=== PATIENT | male | born 1935 | race Caucasian/White ===

== ENCOUNTER 2017-01-04 11:01 | Inpatient (IN) | payer MEDICARE, BC ==
[~2017-01-04] VITALS: Ht 177.8 cm; Wt 77.1 kg
--- NOTE | ~2017-01-04 | ECH ---
Transthoracic Echocardiography Report (TTE) Demographics Patient Name CARMEN PEREZ Date of Study 01/07/2017 Patient Number [id number] Visit Number [id number] Date of 1935 Room Number 414 Accession Number [id number] Gender Male Age 81 year(s) Referring Vu Desouza MD Edger Operator Deedee Purcell Physician RDCS Physician Interpreting Wilder AUGUSTINE Refractory Grinder Operator Physician Chao Supervising Ordering Physician Vu Desouza MD, MD/P Nurse Stress Customer Sales Advisor Conclusions Contractility Score Summary Normal Left Ventricular contractility was noted. Summary Technically very difficult exam with limited visualization of the valves. The estimated left ventricular ejection fraction is 60%. Diastolic assessment reveals Grade I diastolic dysfunction. No significant regurgitant valvular abnormalities. No definitive evidence of endocarditis from TTE. Recommendation The patient will be given the results of this study by the physician who ordered the exam. Procedure Type of Study TTE procedure:Echo Complete SF. Procedure Date Date: 01/07/2017 Start: 02:06 PM Technical Quality: Limited visualization due to poor acoustical window. Indications:Fever of unknown origin and Atrial fibrillation. Appropriate Use Criteria: 9 Height: 70 inches Weight: 176 pounds BSA: 1.98 m Rhythm: Atrial fibrillation HR: 112 bpm BP: 172/65 mmHg M-Mode/2D Measurements LV Diastolic Dimension: 5.89 cm LV Systolic Dimension: 3.55 cm LV Septum Diastolic: 0.87 cm LV PW Diastolic: 0.84 cm AO Root Dimension: 3.6 cm Cardiac Output: 5.04 l/min LA Dimension: 3.48 cm Cardiac Index: 2.55 l/min*m RV Diastolic Dimension: 3 cm LA volume index: 30 ml/m LVOT: 2.02 cm LVOT VTI: 14.06 cm RV Base: 3.7 cm LV Stroke volume: 45.04 ml RV Mid: 2 cm LV Stroke volume index: 22.75 ml/m TAPSE: 2.9 cm TDI-S': 15 cm/s Doppler Measurements AV Peak Velocity: 1.4 m/s MV Peak E-Wave: 0.61 m/s AV Peak Gradient: 7.84 mmHg MV Peak A-Wave: 0.72 m/s AV Mean Gradient: 4.18 mmHg MV E/A Ratio: 0.85 LVOT Peak Velocity: 0.77 m/s MV P1/2t: 61.7 msec AV Area (Continuity):1.6 cm MV Deceleration Time: 103.6 msec TR Velocity:2.47 m/s MV Area (PHT): 3.57 cm TR Gradient:24.4 mmHg PV Peak Velocity: 0.78 m/s Estimated RAP:5 mmHg PV Peak Gradient: 2.4 mmHg Estimated RVSP: 29 mmHg Estimated PASP: 29.4 mmHg E' Septal Velocity: 0.18 m/s A' Lateral Velocity: 0.15 m/s E' Lateral Velocity: 0.1 m/s RA Area: 16.86 cm Findings Left Ventricle Normal left ventricle size and function. Diastolic assessment reveals Grade I diastolic dysfunction. Right Ventricle Normal right ventricle structure and function. Left Atrium Normal left atrial size. Right Atrium Normal right atrial size. Mitral Valve Normal mitral valve structure and function. Trivial mitral regurgitation by pulsed wave Doppler. Aortic Valve The aortic valve was not well imaged. Tricuspid Valve The tricuspid valve is not well visualized. Trivial tricuspid regurgitation by color Doppler. Normal pulmonary pressures. Pulmonic Valve The pulmonic valve is not well visualized. Pericardial Effusion No evidence of pericardial effusion. Miscellaneous Visualized portions of the aortic root and ascending aorta appear normal in size. Pleural Effusion No evidence of pleural effusion. Contractility Score LV regional wall motion:(0-Non visualized 1-Normal 2-Hypokinesis 3-Akinesis 4-Dyskinesis 5-Aneurysm) Signature
[~2017-01-04 11:01] MED LIST: ADVIL DPS200 MG PO; ALDACTONE DPS25 MG PO; ATIVAN-DPS1 MG PO; AUGMENTIN875 MG PO; BROVANA15 MCG/2 M IH; CEFTIN DPS500 MG PO; CEFZIL DPS250 MG PO; CITROMA DPS300 ML PO; COLACE-DPS100 MG PO; DELTASONE DPS10 MG PO; DELTASONE DPS20 MG PO; DESYREL DPS100 MG PO; DESYREL-DPS50 MG PO; DUONEB DPS3 ML IH; DUONEB DPS3 ML PO; FLOMAX DPS0.4 MG PO; FLONASE 0.05% D16 GM NS; GENTEAL MILD15 ML OU; GLUCAGON1 MG/ML IM; GLUCOPHAGE-DPS500 MG PO; GLUTOSE 1537.5 GM PO; HYDROCODONE 5MG/5 MG PO; ISOPTIN SR TAB120 MG PO; KLOR-CON M2020 ME1 PO; LANOXIN DPS0.125 MG PO; LASIX DPS40 MG PO; LEXAPRO DPS10 MG PO; LEXAPRO DPS20 MG PO; MAALOX DPS30 ML PO; MICRO-K DPS10 MEQ PO; MIRALAX DPS17 GM PO; MIRALAX PACKET17 GM PO; MUCINEX600 MG PO; MUCOMYST 10% DPS4 ML IH; MYCELEX TROCHE10 MG PO; NITROSTAT0.4 MG SL; NORCO 7.5-3251 EACH PO; NORVASC DPS10 MG PO; NORVASC5 MG PO; NOVOLOG100 UNIT/2 SQ; POTASSIUM CHLO20 ME1 PO; PRESERVISION A1 EACH PO; PROSCAR DPS5 MG PO; PULMICORT0.5 MG/2 M IH; PULMICORT0.5 MG/21 IH; REGLAN DPS5 MG PO; SENOKOT DPS8.6 MG PO; SURFAK DPS240 MG PO; THERA-M1 EACH PO; TYLENOL DPS325 MG PO; VIBRAMYCIN-DPS100 M2 PO; VITAMIN B-12100 MCG PO; VITAMIN D31000 UNIT PO; VITAMIN D3400 UNIT PO; ZOCOR DPS20 MG PO; ZOFRAN4 MG PO
--- NOTE | 2017-01-05 14:17 | ER ---
ADMIT: 01/04/2017 RM/LOC: 414 [facility] MR#: [id number] [id number] [facility] [address] [place], [place] [address] CARMEN PEREZ [address] [place] [address] Emergency Room Report SEX: M AGE: 81 : 1935 DATE: 01/04/2017 ADDENDUM: A 81-year-old, white male coming in with fever, cough. He was just out of the hospital, was getting better, but then he started to spike a fever at home, 101-102 or greater. White count 15.7. That is going up from his last visit. His lactate is 2.1. It is still above 2. It has come down a little bit from what he had before. Glucose 230. Rechecking for flu, he had type A before, make sure he did not get type B at the same time which he did not. CT scan, the interval change is worse with more effusion. I refer you to the dictation. I spoke with Dr. Womack. We are going to admit him one more time. COPD with exacerbation, rule out pneumonia, cough, fever, hypoxia, shortness of breath. He is cultured up at this time. 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 Further treatment per Dr. Womack. CONDITION ON DISCHARGE: Serious, but stable. Alexandr Forte MD/ modl JOB #: [id number] CC: Gato Womack MD, Attending Physician Gato Womack MD, Family Physician
--- NOTE | 2017-01-10 10:30 | CO ---
ADMIT: 01/04/2017 RM/LOC: 414 [facility] MR#: [id number] [id number] [place], [place] [address] CARMEN BORJA [address] [place] [address] Consultation SEX: M AGE: 81 : 1935 DATE OF CONSULTATION: 01/08/2017 ATTENDING PHYSICIAN: Gato Womack CONSULTING PHYSICIAN: Abelardo Rosales MD, [facility] REASON FOR REFERRAL: Fever. HISTORY OF PRESENT ILLNESS: Mr. Boraj is a 81-year-old male, who has had recurrent fever off and on for the past month. This was proceeded by influenza A infection. He has had recurrent fever here despite antibiotics and Infectious Disease was consulted and Pulmonary for possible bronchoscopy. He is present with his . When discussed bronchoscopy, the refuses bronchoscopy at this time, states he has had several in the past and he had great difficulty with those and she would decline these at the current time. The patient is not speaking much for himself at the current time but he did not disagree with his . He does have COPD, I did not have PFTs on him. Apparently, he has had bronchoscopies in the past. He has had right lower lobe resection in the past. 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 He has no sinus congestion. He has no teeth pain, although he admits that his teeth are in poor repair. His cough is nonproductive. He has no chest pain, no orthopnea, no PND. He had thoracentesis done on the , which showed no acid bacilli, no fungal elements, no bacteria. It should be noted that other than the cultures, I cannot find any other body fluid chemistries that were ordered. PAST MEDICAL HISTORY: Remarkable for the above-mentioned pulmonary issues. He is status post cholecystectomy, has a history of pseudomonas pneumonia, interstitial lung disease, bronchiectasis, cholecystectomy, depression, obstructive sleep apnea, hyperlipidemia, chronic back pain, BPH, steroid- induced hyperglycemia, he had lobectomy and sacrectomy in the past. He has a previous history of MRSA. SOCIAL HISTORY: He is a previous smoker. REVIEW OF SYSTEMS: Other than mentioned above is noncontributory. MEDICATIONS: His current medications on admission were: 1. Desyrel. 2. Diflucan. 3. Flomax. 4. Glucophage. 5. Klor-Con. 6. Lasix. 7. Lexapro. 8. Mucinex. 9. Norvasc. 10.Proscar. 11.Reglan. 12.Tylenol. ADMIT: 01/04/2017 RM/LOC: 414 [facility] MR#: [id number] [id number] [address] [place] [facility] [address] [place] [address] Consultation SEX: M AGE: 81 : 1935 13.Vitamin D. 14.Brovana. 15.DuoNeb. 16.Pulmicort. 17.Lovenox. 18.Lotrimin. PHYSICAL EXAMINATION: VITAL SIGNS: His T-max is 102.3, pulse 83, respirations 26, blood pressure 128/57. GENERAL: He appears chronically ill, in no apparent distress. Breathing is unlabored but he does appear weak and frail. HEENT: Sclerae nonicteric. Throat is not erythematous. Dentition in poor repair but no gross lesions in his mouth. NECK: Supple. Trachea is midline. LUNGS: Decreased with prolonged expiratory phases and wheezes. He does have bandage over his left side of his chest or back. CVS: Regular rate without murmurs, rubs, or gallops. ABDOMEN: Active bowel sounds. Soft and nontender. EXTREMITIES: No cyanosis, clubbing, or edema. LABORATORY DATA: CAT scan of his chest shows slightly-loculated pleural effusion on the left side, emphysema, pleural plaques, and pleural thickening, emphysematous fibrotic changes around the atelectasis, lingula appears well aerated. PH of 7.42, pCO2 of 44, pO2 of 96 on 12/29/2014, per blood gases. Albumin is 1.8. Sodium is 140, potassium 4.0, chloride 102, CO2 of 30, BUN 14, creatinine 0.8, phosphorus 2.4. Albumin is 1.8. Sed rate is 117. The patient had an echo which showed ejection fraction of 60%, no valvular abnormalities. IMPRESSION: 1. Fever. 2. Pleural effusion. 3. Elevated sed rate. 4. Chronic obstructive pulmonary disease. RECOMMENDATIONS AND DISCUSSION: The patient with fever with very elevated sed rate. I am wondering about the sinus or a tooth abscess could be another consideration. I did not see anything on his chest CT that resembles a ADMIT: 01/04/2017 RM/LOC: 414 [facility] MR#: [id number] [address] [place] [address] [place], [place] [address]CARMEN FRAZIER [address] [place] [address] Consultation SEX: M AGE: 81 : 1935 significant pneumonia. Regardless, the refuses bronchoscopy at this time, so I would await cultures. It is impossible for me to comment further on the pleural effusion, given there were no chemistry sent to further define if the fluid was transudative, exudative, nor there is cytology. If this ever re-occur to significant degree, I would recommend sending him for the above- mentioned labs to further define the pleural effusion. We will defer antibiotics to Infectious Disease. In summary, I was asked to see the patient regarding possible bronchoscopy to help with the cultures. The refuses this at the current time. I would get a limited CT to make sure he does not have the sinusitis causing this problems. Otherwise, we will defer the antibiotics to ID and continue dialogue regarding whether a bronchoscopy would be reasonable in the future. I will get PFTs to review as well. Abelardo Rosales MD, FCCP/ modl JOB #: [id number] CC: Gato Womack, Attending Physician Gato Womack, Family Physician
--- NOTE | 2017-01-18 10:17 | CO ---
ADMIT: 01/04/2017 RM/LOC: 414 [facility] MR#: [id number] [address] [place], [place] [address] CARMEN BORJA [address] [place] [address] Consultation SEX: M AGE: 81 : 1935 DATE OF CONSULTATION: 01/07/2017 ATTENDING PHYSICIAN: Gato Womack CONSULTING PHYSICIAN: Zuleima Adams MD REASON FOR CONSULT: Fever of unknown origin. Thank you, Dr. Womack, for the consult and involving me in this patient's care. HISTORY OF PRESENT ILLNESS: Mr. Borja is a 81-year-old man with history of COPD and pulmonary silicosis and scarring, who was in the hospital in beginning of November and was found to have influenza A. He was treated with Tamiflu and was doing well until few weeks and came back to the hospital again on December 29 with increasing wheezing and cough, and treated for COPD exacerbation. He was discharged on cefdinir and Augmentin, and came back again in 3 days as he noted fever of 102 at home. The patient continues to complain of not feeling well, had has been wheezing and per his , he had greenish sputum before which has become yellow in color at this time. He denies any GI or symptoms at this time. PAST MEDICAL HISTORY: 1. Interstitial lung disease, suspicious for silicosis. 2. Severe bronchiectasis, on 3 L oxygen at home. 3. Recurrent pneumonias. 4. History of cholecystectomy. 5. Depression. 6. Advanced COPD. 7. Anxiety. 8. Hypertension. 9. History of Pseudomonas pneumonia. 10.History of MRSA pneumonia in December 2015. 11.Obstructive sleep apnea, on BiPAP. 12.Hyperlipidemia. 13.Chronic back pain. 14.BPH. 15.Steroid-induced hyperglycemia. PAST SURGICAL HISTORY: Right partial lobectomy and cholecystectomy. SOCIAL HISTORY: The patient lives at home with his . Denies any smoking, alcohol, or recreational drug use. FAMILY HISTORY: Significant for heart disease in his mother. ALLERGIES: NO KNOWN DRUG ALLERGIES. HOME CURRENT MEDICATIONS: 1. Aldactone. 2. Deltasone. ADMIT: 01/04/2017 RM/LOC: 414 [facility] MR#: [id number] [id number] [address] CARMEN BORJA [address] [place] [address] Consultation SEX: M AGE: 81 : 1935 3. Desyrel. 4. Diflucan 200 mg at bedtime. 5. Flomax. 6. Glucophage. 7. Klor-Con. 8. Lasix 40 mg daily. 9. Levaquin 500 mg once daily. 10.Lexapro. 11.Mucinex. 12.Norvasc. 13.Proscar. 14.Reglan. 15.Tylenol. 16.Vitamin D. 17.Brovana. 18.DuoNeb. 19.Pulmicort. 20.Lovenox. 21.Lotrimin. 22.Meropenem 1 g q.12 hours. 23.Vancomycin 1 g q.12 hours. REVIEW OF SYSTEMS: Ten-point review of systems negative except as mentioned in the HPI. PHYSICAL EXAMINATION: VITAL SIGNS: Current temperature of 99.6, T-max 102.1, heart rate 90, respirations 24, blood pressure 172/65, 95% on 3 L. GENERAL: No acute distress. HEENT. Head, normocephalic and atraumatic. Extraocular movements intact. NECK AND LYMPH: No palpable anterior/posterior cervical or supraclavicular lymphadenopathy. CHEST: Diffuse wheezing bilaterally. CARDIOVASCULAR: S1 and S2 heard. ABDOMEN: Soft, mildly distended, sluggish bowel sounds. Nontender to palpation. EXTREMITIES: No peripheral edema. PSYCH: Normal affect. Memory intact. SKIN: No rash noted on exposed skin. DATA REVIEW: CBC today shows white count of 12.2, hemoglobin 10.4, platelets of 227, ESR of 117. Lactic acid is 2.1. CT scan with contrast showed advanced chronic changes with emphysematous change and fibrotic change. There are calcified pleural plaques. There is interval increase in size of left pleural effusion and lingula appears less radiated, suggesting inflammatory change. ASSESSMENT AND PLAN: 1. Fever - likely secondary to post-influenza pneumonia, however, did not ADMIT: 01/04/2017 RM/LOC: 414 [facility] MR#: [id number] [address] [id number] [place] [address] [place] [address] Consultation SEX: M AGE: 81 : 1935 see any air bronchograms on CT chest. Ideally, I would like to treat him with linezolid as drug fever is also a possibility due to beta lactams but he is on Lexapro and there is possible interaction and possibility for Serotonin syndrome if given together. I will stop Levaquin, vancomycin, and meropenem for now and try ceftaroline 600 mg twice daily. Sputum culture and sensitivity is pending. Blood cultures are no growth to date. 2. Abdominal distention, nontender on physical exam. CT scan is pending. 3. Chronic obstructive pulmonary disease exacerbation. He has still significant wheezing, may need IV steroids. 4. Pulmonary scarring. 6. History of recurrent pneumonia, we will check IgG subclasses level. 7. Lactic acidosis. We will hold metformin and give 500 mL normal saline once. 8. Lorena urinary tract infection. However not significant colonies of Lorena. Okay continuing with fluconazole for now. Thank you for the consult and I will continue to follow the patient. Zuleima Adams MD/ ange JOB #: [id number] CC: Gato Womack, Attending Physician Gato Womack, Family Physician
[2017-01-18] MEDS ORDERED: PULMICORT0.5 MG/2 M IH (17:00)
[2017-01-18] MEDS ORDERED: MUCOMYST 10% DPS4 ML PO (17:00)
[2017-01-18] MEDS ORDERED: BROVANA15 MCG/2 M IH (17:00)
[2017-01-18] MEDS ORDERED: DUONEB DPS3 ML PO (17:00)
[2017-01-18] MEDS ORDERED: DUONEB DPS3 ML IH (17:01)
[2017-01-18] MEDS ORDERED: FLONASE 0.05% D16 GM NS (17:01)
[2017-01-18] MEDS ORDERED: REGLAN DPS5 MG PO (17:01)
[2017-01-18] MEDS ORDERED: FLOMAX DPS0.4 MG PO (17:01)
[2017-01-18] MEDS ORDERED: PROSCAR DPS5 MG PO (17:02)
[2017-01-18] MEDS ORDERED: NORVASC5 MG PO (17:02)
[2017-01-18] MEDS ORDERED: DESYREL DPS100 MG PO (17:02)
[2017-01-18] MEDS ORDERED: LEXAPRO DPS20 MG PO (17:02)
[2017-01-18] MEDS ORDERED: ALDACTONE DPS25 MG PO (17:02)
[2017-01-18] MEDS ORDERED: MIRALAX PACKET17 GM PO (17:02)
[2017-01-18] MEDS ORDERED: ATIVAN-DPS1 MG PO (17:03)
[2017-01-18] MEDS ORDERED: SENOKOT DPS8.6 MG PO (17:03)
[2017-01-18] MEDS ORDERED: KLOR-CON M2020 ME1 PO (17:03)
[2017-01-18] MEDS ORDERED: TYLENOL DPS325 MG PO ×2 (17:03→17:04)
[2017-01-18] MEDS ORDERED: NORCO 7.5-3251 EACH PO (17:04)
[2017-01-18] MEDS ORDERED: VITAMIN D3400 UNIT PO (17:04)
[2017-01-18] MEDS ORDERED: GENTEAL GEL DRO15 ML OU (17:05)
[2017-01-18] MEDS ORDERED: LASIX DPS40 MG PO (17:05)
[2017-01-18] MEDS ORDERED: COLACE-DPS100 MG PO (17:05)
[2017-01-18] MEDS ORDERED: PRESERVISION A1 EACH PO (17:06)
[2017-01-18] MEDS ORDERED: MUCINEX600 MG PO (17:06)
[2017-01-18] MEDS ORDERED: VITAMIN B-12100 MCG PO (17:06)
[2017-01-18] MEDS ORDERED: THEREMS-M1 EACH PO (17:07)
--- NOTE | 2017-02-08 13:12 | HP ---
ADMIT: 01/04/2017 RM/LOC: 414 [facility] MR#: [id number] [address] [address] RODDY BORJA [address] [place] [address] History and Physical SEX: M AGE: 81 : 1935 DATE OF SERVICE: CHIEF COMPLAINT: Fever. CLINICAL HISTORY: Roddy Borja spiked a fever on Wednesday, 48 hours after leaving the hospital. He previously was here with influenza, but did not have that we could tell active pneumonia. He has significant scarring in his lungs and now chest x-ray and CT scan that do not really define any definite pneumonia, but we have noticed an increase in the pleural effusion on the left side, compared to one week ago. He denies any pleuritic pain, chest pain. He just does not feel well when his temperature goes above 102. He has not had a change in sputum or cough. No , GI or other symptoms. He had been eating well and except for the fever had no other focal symptoms. He declined going to the hospital on Wednesday evening, but Wednesday morning, spiked a fever again to 102.4, called our office and they suggested that he go to the emergency room. There, evaluation was undertaken. REVIEW OF SYSTEMS: Extensively negative. He was on antibiotics in the form of Augmentin at the time of his dismissal and continued those without GI upset, diarrhea, or other signs or symptoms to suggest drug fever or rash. PHYSICAL EXAMINATION: GENERAL: Revealed a tired, ill-appearing white male, chronically. LUNGS: Really did not appear the need to change. I really could not hear any significant rhonchi, wheezing, or focal rales. HEART: Showed a pulse rate that was 110-120. ABDOMEN: Benign. EXTREMITIES: Unremarkable. NEUROLOGICAL: There are no neurological findings. IMPRESSION: 1. Fever, etiology unknown. 2. Recent influenza. 3. Left pleural effusion. 4. Advanced lung disease with pulmonary scarring, silicosis, and asbestos of bilateral pleural plaquing. ADMIT: 01/04/2017 RM/LOC: 414 [facility] MR#: [id number] [address] [address] RODDY BORJA [address] [place] [address] History and Physical SEX: M AGE: 81 : 1935 5. 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 6. History of recurrent pneumonias and probable bronchiectasis. 7. Status post cholecystectomy. 8. Status post L2 kyphoplasty. 9. Degenerative arthritis of lumbar spine. TREATMENT: We will culture him again and broaden the spectrum of these antibiotics, undertake pleural tap to rule out a possible empyema or secondary staph infection following influenza and we will try and evaluate him carefully. He does look from a heart rate standpoint that he is trying to slip into atrial fibrillation, we will watch that carefully and consider treatment in case that does. For the time being, we will use subcu Lovenox. Gato Womack MD/ nage JOB #: [id number] CC: Gato Womack, Attending Physician Gato Womack, Family Physician
--- NOTE | 2017-03-29 10:42 | DS ---
ADMIT: 01/04/2017 RM/LOC: 414 [facility] MR#: [id number] [address] [address] CARMEN PEREZ [address] [place] [address] Discharge Summary SEX: M AGE: 81 : 1935 ADMISSION DATE: 01/04/2017 DISCHARGE DATE: 01/17/2017 DISMISSAL DIAGNOSES: 1. Pseudomonas pneumonia. 2. Advanced emphysema. 3. Bronchiectasis. 4. Nasal septal deviation without sinus infection. 5. Prior cholecystectomy. 6. Chronic oxygen use. 7. Left pleural effusion without empyema. CLINICAL COURSE: Carmen came in 48 hours after leaving the hospital with influenza. He had hectic fevers, resistant to initial antibiotics with subsequent finding of Pseudomonas pneumonia. Laboratory undertaken during this hospital stay is not available on the [facility] system at this time and I cannot recall finite details of such. Radiology demonstrated an air space disease on the CT scan after initial CT scan was unremarkable. There was a pleural effusion. It was tapped and my recollection is that it was culture negative. Echo and EKG were stable and telemetry was unremarkable except periods of sinus tachycardia and occasional PACs. He was seen in consultation with Pulmonary and Infectious Disease, treated with IV antibiotics, post culture and was dismissed on Aldactone 25 mg every other day, prednisone 10 mg daily, Desyrel 100 mg at bedtime, Flomax 0.4 daily, KCl 20 mEq daily, Lasix 40 mg daily, Lexapro 20 mg daily, MiraLAX daily, Mucinex p.r.n., Norvasc 5 mg b.i.d., Proscar 5 mg daily, Reglan 5 mg before meals, multivitamin daily, vitamin D 1000 units daily, vitamin B12, 250 mcg daily, Brovana 15 mcg per 2 mL b.i.d. per nebulizer treatment, DuoNeb q.4 hours p.r.n., Mucomyst b.i.d., Pulmicort Respules 0.5 mg per 2 mL b.i.d., Flonase 1 spray each nostril b.i.d., Natural Tears, Tylenol and pain medication and Ativan on a p.r.n. basis. He will continue his oxygen. We will see him in followup and he will complete his antibiotic therapy with Maxipime and subsequent oral antibiotics. Gato Womack MD/ ange JOB #: [id number] CC: Gato Womack MD, Attending Physician Gato Womack MD, Family Physician Zuleima Adams MD ADMIT: 01/04/2017 RM/LOC: 414 [facility] MR#: [id number] [address] [place] [address] Discharge Summary SEX: M AGE: 81 : 1935 Abelardo Rosales MD, [facility]
== END 2017-01-17 13:04 | disposition home health service (06) | DRG 190 ==
LOC: ER 11:01 → 4PCU 13:50
PROVIDERS: ADMIT Internal Medicine
PROC: 0W9B3ZX Drainage of Left Pleural Cavity, Percutaneous Approach, Diagnostic (ICD-10-PCS; principal; 2017-01-05)
PROC: 3E033WK Introduction of Immunostimulator into Peripheral Vein, Percutaneous (ICD-10-PCS; 2017-01-11)
DX: J44.0 Chronic obstructive pulmonary disease with (acute) lower respiratory infection (principal); J15.1 Pneumonia due to Pseudomonas; E87.2 Acidosis; D80.3 Selective deficiency of immunoglobulin G [IgG] subclasses; Z99.81 Dependence on supplemental oxygen; J91.8 Pleural effusion in other conditions classified elsewhere; B37.49 Other urogenital candidiasis; J44.1 Chronic obstructive pulmonary disease with (acute) exacerbation; J62.8 Pneumoconiosis due to other dust containing silica; R09.02 Hypoxemia; M47.816 Spondylosis without myelopathy or radiculopathy, lumbar region; F32.9 Major depressive disorder, single episode, unspecified; F41.9 Anxiety disorder, unspecified; I10 Essential (primary) hypertension; G47.33 Obstructive sleep apnea (adult) (pediatric); E78.5 Hyperlipidemia, unspecified; M54.9 Dorsalgia, unspecified; N40.0 Benign prostatic hyperplasia without lower urinary tract symptoms; Z86.14 Personal history of Methicillin resistant Staphylococcus aureus infection; Z66 Do not resuscitate; Z16.20 Resistance to unspecified antibiotic